=== PATIENT | male | born 1975 | race Caucasian/White ===

== ENCOUNTER 2021-08-08 14:21 | Inpatient (IN) | payer OTHER ==
[2021-08-08 16:30] VITALS: BMI 29.2
[2021-08-08] MEDS ORDERED: MAGNESIUM HYDROX 2400MG/30ML ORAL SUSPENSION 30 ML CUP PO PRN (18:04)
[2021-08-08] MEDS ORDERED: IBUPROFEN 400 MG TABLET (FP) PO PRN (18:04)
[2021-08-08] MEDS ORDERED: BISMUTH SUBSALICYLATE 524 MG/30 ML PO PRN (18:04)
[2021-08-08] MEDS ORDERED: NALOXONE (NARCAN) HCL 4 MG/0.1 ML SPRAY NS PRN (18:04)
[2021-08-08] MEDS ORDERED: LORazepam 1 MG TABLET PO PRN (18:04)
[2021-08-08] MEDS ORDERED: MAGNESIUM CITRATE 300 ML BOTTLE PO PRN (18:04)
[2021-08-08] MEDS ORDERED: ACETAMINOPHEN 325 MG TABLET (FP) PO PRN ×2 (18:04)
[2021-08-08] MEDS ORDERED: MAG HYDROX/AL HYDROX/SIMETH 30 ML UNIT-DOSE CUP PO PRN (18:04)
[2021-08-08] MEDS ORDERED: MENTHOL/PHENOL 1 EACH UD MM PRN (18:04)
[2021-08-08] MEDS ORDERED: ONDANSETRON *ODT* 4 MG TABLET SL PRN (18:04)
[2021-08-08] MEDS: THIAMINE HCL 100 MG TABLET (FP) PO SCH (21:06)
[2021-08-08] MEDS: hydrOXYzine PAMOATE 25 MG CAPSULE (FP) PO SCH (21:06)
[2021-08-08] MEDS: cloNIDine HCL 0.1 MG TABLET PO PRN (21:06)
[2021-08-08] MEDS: METHOCARBAMOL 500 MG TABLET PO PRN (21:06)
[2021-08-08] MEDS: MELATONIN 5 MG TABLETS PO SCH (21:06)
[2021-08-08] MEDS: LORazepam 2 MG TABLET PO SCH ×2 (21:06→23:18)
[2021-08-08] MEDS: PRENATAL VITAMINS W/ FOLIC ACID TABLET (FP) PO SCH (21:06)
[2021-08-08] MEDS: NICOTINE 21 MG/24 HOURS TOPICAL PATCH TD SCH (21:07)
[2021-08-09] MEDS: hydrOXYzine PAMOATE 25 MG CAPSULE (FP) PO SCH ×2 (06:25→10:47)
[2021-08-09] MEDS: LORazepam 2 MG TABLET PO SCH ×4 (06:25→22:14)
[2021-08-09] MEDS: cloNIDine HCL 0.1 MG TABLET PO PRN (06:26)
[2021-08-09] MEDS: NICOTINE POLACRILEX 2 MG GUM BUC PRN (06:30)
[2021-08-09 10:18] LABS: HEMATOCRIT 40.8 % (35.4-49); HEMOGLOBIN 14.1 GM/dL (11.7-16.9); MCH 31.4 pg (25.7-33.7); MCHC 34.6 g/dl (32.0-35.9); MEAN CELL VOLUME 90.9 fl (80-96); MEAN PLT VOLUME 8.4 fl (7.5-11.1); PLATELET COUNT 230 10^3/uL (134-434); RBC 4.49 M/mm3 (4.00-5.60); RDW 13.7 % (11.9-15.9); WHITE BLOOD COUNT 6.4 K/mm3 (4.0-10.0)
[2021-08-09 10:39] LABS: CALCIUM 9.2 mg/dL (8.5-10.1)
[2021-08-09 10:41] LABS: CREATININE 1.2 mg/dL (0.55-1.3)
[2021-08-09 10:43] LABS: BILIRUBIN,TOTAL 0.8 mg/dL (0.2-1); TOT PROT 6.5 g/dl (6.4-8.2)
[2021-08-09 10:45] LABS: BLOOD UREA NITROGEN 12.1 mg/dL (7-18)
[2021-08-09] MEDS: PRENATAL VITAMINS W/ FOLIC ACID TABLET (FP) PO SCH (10:47)
[2021-08-09] MEDS: NICOTINE 21 MG/24 HOURS TOPICAL PATCH TD SCH (10:48)
[2021-08-09] MEDS: NICOTINE 10 MG CARTRIDGE (INHALER) IH PRN (17:40)
[2021-08-09] MEDS: risperiDONE 2 MG TABLET PO SCH (22:14)
[2021-08-09] MEDS: THIAMINE HCL 100 MG TABLET (FP) PO SCH (22:14)
[2021-08-09] MEDS: traZODone HCL 50 MG TABLET (FP) PO SCH (22:14)
[2021-08-09] MEDS: MELATONIN 5 MG TABLETS PO SCH (22:14)
[2021-08-10] MEDS: LORazepam 1 MG TABLET PO SCH ×4 (06:31→22:21)
[2021-08-10] MEDS: ESCITALOPRAM OXALATE 10 MG TABLET PO SCH (10:29)
[2021-08-10] MEDS: PRENATAL VITAMINS W/ FOLIC ACID TABLET (FP) PO SCH (10:29)
[2021-08-10] MEDS: NICOTINE 21 MG/24 HOURS TOPICAL PATCH TD SCH (10:29)
[2021-08-10] MEDS: NICOTINE POLACRILEX 2 MG GUM BUC PRN ×2 (10:32→17:33)
[2021-08-10] MEDS: cloNIDine HCL 0.1 MG TABLET PO PRN (17:29)
[2021-08-10] MEDS: THIAMINE HCL 100 MG TABLET (FP) PO SCH (22:21)
[2021-08-10] MEDS: MELATONIN 5 MG TABLETS PO SCH (22:21)
[2021-08-10] MEDS: METHOCARBAMOL 500 MG TABLET PO PRN (22:21)
[2021-08-10] MEDS: traZODone HCL 50 MG TABLET (FP) PO SCH (22:21)
[2021-08-10] MEDS: risperiDONE 2 MG TABLET PO SCH (22:21)
[2021-08-11] MEDS ORDERED: LORazepam 0.5 MG TABLET PO PRN
[2021-08-11] MEDS: LORazepam 0.5 MG TABLET PO SCH ×4 (05:57→23:14)
[2021-08-11] MEDS: NICOTINE POLACRILEX 2 MG GUM BUC PRN (05:59)
[2021-08-11] MEDS: ESCITALOPRAM OXALATE 10 MG TABLET PO SCH (10:16)
[2021-08-11] MEDS: PRENATAL VITAMINS W/ FOLIC ACID TABLET (FP) PO SCH (10:17)
[2021-08-11] MEDS: NICOTINE 21 MG/24 HOURS TOPICAL PATCH TD SCH (10:18)
[2021-08-11] MEDS: NICOTINE 10 MG CARTRIDGE (INHALER) IH PRN (17:31)
[2021-08-11] MEDS: METHOCARBAMOL 500 MG TABLET PO PRN ×2 (17:31→23:15)
[2021-08-11] MEDS: hydrOXYzine PAMOATE 25 MG CAPSULE (FP) PO PRN ×2 (17:31→23:14)
[2021-08-11] MEDS: MELATONIN 5 MG TABLETS PO SCH (23:14)
[2021-08-11] MEDS: traZODone HCL 50 MG TABLET (FP) PO SCH (23:14)
[2021-08-11] MEDS: THIAMINE HCL 100 MG TABLET (FP) PO SCH (23:14)
[2021-08-11] MEDS: risperiDONE 2 MG TABLET PO SCH (23:14)
[2021-08-12] MEDS ORDERED: LORazepam 0.5 MG TABLET PO ONE (05:00)
[2021-08-12 08:48] VITALS: BP 132/80; PULSE 61; TEMP 97.3
[2021-08-12] MEDS: NICOTINE 21 MG/24 HOURS TOPICAL PATCH TD SCH (09:10)
[2021-08-12] MEDS: ESCITALOPRAM OXALATE 10 MG TABLET PO SCH (09:10)
[2021-08-12] MEDS: PRENATAL VITAMINS W/ FOLIC ACID TABLET (FP) PO SCH (09:11)
== END 2021-08-12 09:18 | disposition home or self-care (01) | DRG 897 ==
LOC: YASAS 14:21 → Y3N 19:54
PROVIDERS: ADMIT Allergy & Immunology; ATTEND Allergy & Immunology
PROC: HZ2ZZZZ Detoxification Services for Substance Abuse Treatment (ICD-10-PCS; principal; 2021-08-08)
DX: F19.230 Other psychoactive substance dependence with withdrawal, uncomplicated (principal); F14.20 Cocaine dependence, uncomplicated; F11.20 Opioid dependence, uncomplicated; F10.230 Alcohol dependence with withdrawal, uncomplicated; F12.20 Cannabis dependence, uncomplicated; F17.210 Nicotine dependence, cigarettes, uncomplicated; F25.9 Schizoaffective disorder, unspecified; G47.00 Insomnia, unspecified; I10 Essential (primary) hypertension; B18.2 Chronic viral hepatitis C
CPT/HCPCS: 36415; 80053; 85027; 86780; C9803; J0735; U0003; U0005